=== PATIENT | male | born 1960 | race Caucasian/White ===

== ENCOUNTER 2025-06-17 05:27 | Observation (INO) ==
--- NOTE | 2025-05-23 08:57 | PAT Medication Instructions ---
Medication Instructions Date of Service May 23, 2025 Home Medications atorvastatin 40 mg tablet 40 mg PO QAM hydrochlorothiazide 25 mg tablet 25 mg PO QAM lisinopril 20 mg tablet 20 mg PO QAM metoprolol tartrate 50 mg tablet 50 mg PO BID multivitamin 1 tab PO QAM DO NOT take the morning of surgery hydrochlorothiazide 25 mg tablet 25 mg PO QAM lisinopril 20 mg tablet 20 mg PO QAM multivitamin 1 tab PO QAM Take morning of surgery With a small sip of water, OTHERWISE NOTHING TO EAT OR DRINK AFTER MIDNIGHT: atorvastatin 40 mg tablet 40 mg PO QAM metoprolol tartrate 50 mg tablet 50 mg PO BID Take evening before surgery metoprolol tartrate 50 mg tablet 50 mg PO BID Other Notes If you have any questions please call us at [phone] or [phone] or [phone] or [phone]
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
[2025-06-17] MEDS: CeleBREX 200 MG CAP PO SCH ×2 (05:49→20:24)
[2025-06-17] MEDS: ACETAMINOPHEN 500 MG TAB PO SCH ×2 (05:49→13:30)
[2025-06-17] MEDS: LR 60ML/HR IV SCH (05:49)
[2025-06-17] MEDS: LR 500ML BOLUS, THEN 15ML/HR IV SCH (05:49)
[2025-06-17] MEDS ORDERED: MIDAZOLAM HCL 1 MG/ML 2ML VIAL ONE (06:16)
[2025-06-17] MEDS ORDERED: LIDOCAINE 2% 2 ML VIAL/AMP(20MG/ML) INFIL ONE (06:16)
[2025-06-17] MEDS ORDERED: PROPOFOL IV EMULSION 10 MG/ML 100 ML VIAL IV ONE (06:23)
[2025-06-17] MEDS ORDERED: DEXAMETHASONE SOD INJ 4 MG/ML VIAL ONE ×2 (06:29→07:40)
[2025-06-17] MEDS ORDERED: BUPIVACAINE 0.25% PF 30 ML VIAL ONE (06:30)
[2025-06-17] MEDS ORDERED: BUPIVACAINE 0.5 % 5 MG/1 ML PF 10ML VIAL ONE (06:30)
--- NOTE | 2025-06-17 06:43 | History & Physical Bridge Note ---
Date of Service June 17, 2025 History & Physical Bridge Note I have examined the patient, reviewed the History & Physical and in the interval since the performance of the History & Physical I have noted the following changes of clinical significance: no changes noted
[2025-06-17] MEDS ORDERED: ONDANSETRON INJ 2 MG/ML 2 ML VIAL IV PRN ×2 (06:46→11:06)
[2025-06-17] MEDS ORDERED: PROMETHAZINE HCL 6.25 MG in SODIUM CHLORIDE 0.9% 50 ML IV PRN (06:46)
[2025-06-17] MEDS ORDERED: ATROPINE SULFATE 0.1 MG/ML 10ML SYR IV PRN (06:46)
[2025-06-17] MEDS: TRANEXAMIC ACID 1,000 MG **IV Pre-op IV SCH (06:48)
[2025-06-17] MEDS ORDERED: SUCCINYLCHOLINE CHLORIDE 20 MG/ML 10 ML VIAL IV ONE (07:19)
[2025-06-17] MEDS: ROPIV 0.5% 246mg, Ketorolac 30mg, EPINEPHrine 0.5mg in NSS INFIL SCH (07:45)
[2025-06-17] MEDS: ORTHO JOINT ANESTHETIC ONE (07:46)
[2025-06-17] MEDS ORDERED: GLYCOPYRROLATE 0.2 MG/ML VIAL ONE (07:56)
--- NOTE | 2025-06-17 09:53 | Post Operative Brief Note ---
Immediate Post Op Note Date of Surgery June 17, 2025 Pre & Post Diagnosis Operation Date: 06/17/25 07:00 Pre-Op Diagnosis: Left Knee Osteoarthritis Post-Op Diagnosis: Left Knee Osteoarthritis I identified the patient and participated in the time-out.: Yes Procedure Operation Date: 06/17/25 07:00 Actual Procedures p Left Total Knee Arthroplasty(Left) - Faisal Nino MD Surgeon Faisal Nino MD Sql Ssrs Developer Tello Javier PA-C (No fellow avail) Estimated Blood Loss 50 Findings Consistent with Post-Op Diagnosis Fluids 1450 cc Specimens Left knee contents Anesthesia Type MAC Spinal Regional Complications none
--- NOTE | 2025-06-17 09:54 | Operative Report ---
Post Operative Report Pre & Post Diagnosis Operation Date: 06/17/25 07:00 Pre-Op Diagnosis: Left Knee Osteoarthritis Post-Op Diagnosis: Left Knee Osteoarthritis I identified the patient and participated in the time-out.: Yes Procedure Operation Date: 06/17/25 07:00 Actual Procedures p : Left Total knee replacement, imageless computer assisted navigation (Left) - Faisal Nino MD Surgeon Faisal Nino MD Actuary Manager Tello Javier PA-C (No fellow avail) Estimated Blood Loss 50 Findings See Below Examined Under Anesthesia: ROM -- There was 5 degrees to 130 degrees of flexion Ligamentous examination -- revealed stable Juliana, posterior drawer, varus and valgus stress at 5 and 30 degrees. [place]erbridge Grade IV changes of patellofemoral and medial compartments, grade II-III changes lateral compartment. Fluids 1450 cc Specimens Left knee contents Anesthesia Type MAC Spinal Regional Complications none Indications This is a 65-year-old male who has clinical and radiographic findings consistent with osteoarthritis of the left knee. I recommended that a left total knee replacement be performed. The patient understands the risks of surgery, which include but not limited to: bleeding, infection, re-operation, damage to nerves and arteries, continued knee pain, knee stiffness, DVT, and . The patient understands all these instructions and explanations, all his questions have been satisfactorily addressed, and the patient has elected to proceed. Informed consent was signed. Description of Procedure IMPLANTS: 1. Femur: Triathlon #7 left PS. 2. Tibia: Triathlon #7 [place]. 3. Insert: Triathlon #7 x 9 mm PS X3 poly. 4. Patella: Triathlon A40 x 11 mm X3 poly. 5. Palacos cement. Tello Javier PA-C is assisting with positioning, retracting, and closure due to fellow not available. Procedure: The patient was taken to the Operating Room and placed in the supine position after spinal and adductor canal nerve block was administered. My initials and a multidisciplinary time-out were used to identify the left leg as the correct operative limb. A tourniquet was placed high on the thigh. Prior to the incision, 2 grams of intravenous Ancef were given. One g of TXA was given pre- operatively and another after the tourniquet was released. The left leg was then prepped and draped in a standard sterile fashion. An Esmarch was used to exsanguinate the leg, and the tourniquet was inflated to 250 mmHg. The planned mid-line 20 cm incision was created exposing the extensor mechanism. The medial parapatellar arthrotomy was made and the patella was everted. The patella was addressed first. It was prepared by reaming from 27 mm down to 16 mm. An A40 button was found to fit best. The peg holes were made in the standard fashion. The femur was addressed next and using computer assisted OrthoAlign with 3 degrees of flexion and 0 degrees of valgus, removing 10 mm in the standard fashion for the distal cut. The cut was made and after making the Tibial cut and checking the balancing using OrthoAlign Lantern, Flexion/Extension gap 13 mm laterally & 11 mm medially, after releasing medially. The Lantern was set to 9 which matched exactly the posterior referencing guide. The 4-in-1 cutting block for a size 7 femur was placed. These cuts and the cuts to place the box were made in the standard fashion. The tibia cut with using imageless computer assisted OrthoAlign, taking 2 mm from the medial low side. There was sufficient extension and flexion gap to fit a 9 mm spacer. A #7 Tibial baseplate fit well. A trial with a 9 mm spacer showed excellent stability in both flexion and extension, with good ligament balance, and thumbs free patellar tracking. Range of motion of 0-135 degrees. The tibial baseplate was prepped for the keel and stem. A few drill holes were placed in the sclerotic medial side and a small portion of the excess medial over hang with saw. All components were removed. 90 ml of total knee cocktail were injected into the soft tissues and periosteum. All surfaces were copiously irrigated prior to placement of the components. The Tibial baseplate followed by femoral component were cemented in place and the 9 mm X3 poly was placed. Next, the patellar button was placed using the same cement. Once the cement had cured, the range of motion and stability were unchanged. The tourniquet was deflated. Hemostasis was obtained. Another 1g TXA was given. The extensor mechanism was closed with 1-0 Vicryl and 0 Stratafix with the knee bent approximately 60 degrees in a standard fashion. The peritenon and deep fascia was closed with 2-0 Vicryl. The subcutaneous layer was closed with 3-0 Vicryl. The skin was closed with Zipline and shield. The limb was cleaned and dried. 4x4 dressing was placed over top followed by ABDs, sterile Webril, and a foot to thigh Kelechi bandage. The patient was then transferred to the Recovery Room in stable condition. The sponge and needle counts were correct. POST-OP INSTRUCTIONS: The patient will be WBAT. The patient will be admitted to the hospital. Complete 24-hour course antibiotics. Labs will be obtained during the stay. DVT prophylaxis will include aspirin for 6 weeks, TEDs, and mechanical foot pumps. The dressing will be changed, postop day #2-3, and covered with a Silv erlon dressing. I attest to the content of the Intraoperative Record and any orders documented therein. Any exceptions are noted below.
--- NOTE | 2025-06-17 10:26 | Operative Report ---
Post Operative Report Pre & Post Diagnosis Operation Date: 06/17/25 07:00 Pre-Op Diagnosis: Left Knee Osteoarthritis Post-Op Diagnosis: Left Knee Osteoarthritis I identified the patient and participated in the time-out.: Yes Procedure Operation Date: 06/17/25 07:00 Actual Procedures p Left Total Knee Arthroplasty(Left) - Faisal Nino MD Surgeon Faisal Nino MD Winchman/Crane Operator Tello Javier PA-C (No fellow avail) Estimated Blood Loss 50 Findings Consistent with Post-Op Diagnosis Specimens Routine bone and soft tissue Description of Procedure I was present for the entire case. I assisted with patient positioning, prepping, draping, retraction, suctioning, hardware management, irrigation, wound closure, dressing application. Please refer to Dr. Nino's procedure note for full details. I attest to the content of the Intraoperative Record and any orders documented therein. Any exceptions are noted below.
[2025-06-17] MEDS ORDERED: NALOXONE HCL 0.4 MG/1 ML VIAL/CARP IV PRN (11:06)
[2025-06-17] MEDS ORDERED: TAMSULOSIN HCL 0.4 MG CAP PO PRN (11:06)
[2025-06-17] MEDS ORDERED: HYDROmorphone INJ 0.5 MG/0.5 ML SYR IV PRN (11:06)
[2025-06-17] MEDS ORDERED: METOCLOPRAMIDE HCL INJ 5 MG/ML 2 ML VIAL IV PRN (11:06)
[2025-06-17] MEDS ORDERED: MAGNESIUM HYDROXIDE SUSP 30 ML UDC PO PRN (11:06)
--- NOTE | 2025-06-17 11:35 | XRay Report ---
XR knee LT 1 or 2V routine CLINICAL HISTORY: Surgical Post Op COMPARISON: 05/26/2025 FINDINGS: Left knee prosthesis shows no hardware complication. There is expected soft tissue gas. IMPRESSION: Unremarkable postoperative exam. ACT 112: Negative or not required by law. Electronically signed by: Brent Fuentes M.D. 06/17/2025 11:34 AM
[2025-06-17] MEDS: SODIUM CHLORIDE 0.9% 1,000 ML IV SCH (11:36)
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
--- NOTE | 2025-06-17 16:23 | Anesthesiology Progress Note ---
Date of Service June 17, 2025 Anesthesia Post Procedure Vital Signs Vital Signs: Temp Pulse Pulse Resp BP Pulse Ox O2 Del Method 06/17/25 15:23 36.7 C 71 18 157/81 H 95 Room Air 06/17/25 14:02 36.7 C 71 16 172/74 H 98 Room Air 06/17/25 12:36 36.5 C 71 16 160/84 H 97 Room Air 06/17/25 12:00 36.6 C 63 16 181/91 H 99 Room Air 06/17/25 11:35 36.5 C 61 16 145/81 H 96 Room Air 06/17/25 11:06 36.8 C 54 L 15 155/79 H 100 Room Air 06/17/25 10:50 54 L 18 133/75 98 Room Air 06/17/25 10:40 58 L 15 135/70 94 Room Air 06/17/25 10:30 36.4 C L 49 L 18 129/69 92 Room Air 06/17/25 10:20 52 L 15 128/81 100 Room Air 06/17/25 10:12 36.2 C L 54 L 19 130/84 97 Room Air 06/17/25 05:35 36.4 C L 55 L 18 153/84 H 96 Room Air Transfer of Care Handoff Completed per policy Notes Mental Status: alert / awake / arousable and participated in evaluation Patient Amnestic to Procedure: Yes Nausea / Vomiting: adequately controlled Pain: adequately controlled Airway Patency, RR, SpO2: stable & adequate BP & HR: stable & adequate Hydration State: stable & adequate Neuraxial Anesthesia: was administered and sensory block is resolving Anesthetic Complications: no major complications apparent and Pt Satisfied with anesthetic care
[2025-06-17] MEDS: ASCORBIC ACID 500 MG TAB PO SCH (16:34)
[2025-06-17] MEDS: Scopolamine CHECK PATCH PLACEMENT SCH (16:34)
[2025-06-17] MEDS: FERROUS GLUCONATE 324 MG TAB PO SCH (16:34)
--- NOTE | 2025-06-17 20:18 | Orthopedic Progress Note ---
Date of Service June 17, 2025 Assessment & Plan (1) Knee osteoarthritis: Plan: POD #0 s/p Left TKA, doing as well as expected. Resume diet. WBAT with walker. OOB to chair. Continue pain control. Check labs tomorrow. DVT prophylaxis: TEDs 3 weeks, foot pumps while in hospital, ASA 81 mg BID for 6 weeks. PT/OT. D/C planning. Dressing to be re-enforced as needed, changed POD 2-3 to Silverlon type dressing. Admission and Anticipated Discharge Date Admission Date: June 17, 2025 Subjective Doing well, has been up walking Physical Exam Physical Exam: LLE: : BCR < 2 sec. Sensation to light touch intact distally. Wiggling ankle and toes. Calf soft and non-tender. Dressing is clean, intact, slight bloody drainage anterior. Able to perform straight leg raise. Results & Data Vital Signs (Past 12 Hours) Vital Signs Temp Pulse Pulse Resp BP Pulse Ox O2 Del Method 06/17/25 18:13 36.8 C 83 14 174/74 H 97 Room Air 06/17/25 15:23 36.7 C 71 18 157/81 H 95 Room Air 06/17/25 14:02 36.7 C 71 16 172/74 H 98 Room Air 06/17/25 12:36 36.5 C 71 16 160/84 H 97 Room Air 06/17/25 12:00 36.6 C 63 16 181/91 H 99 Room Air 06/17/25 11:35 36.5 C 61 16 145/81 H 96 Room Air 06/17/25 11:06 36.8 C 54 L 15 155/79 H 100 Room Air 06/17/25 10:50 54 L 18 133/75 98 Room Air 06/17/25 10:40 58 L 15 135/70 94 Room Air 06/17/25 10:30 36.4 C L 49 L 18 129/69 92 Room Air 06/17/25 10:20 52 L 15 128/81 100 Room Air 06/17/25 10:12 36.2 C L 54 L 19 130/84 97 Room Air Diagnostic Findings XR knee LT 1 or 2V routine CLINICAL HISTORY: Surgical Post Op COMPARISON: 05/26/2025 FINDINGS: Left knee prosthesis shows no hardware complication. There is expected soft tissue gas. IMPRESSION: Unremarkable postoperative exam.
[2025-06-17] MEDS: METOPROLOL TARTRATE 50 MG TAB PO SCH (20:24)
[2025-06-17] MEDS: SENNA 8.6 MG TAB PO SCH (20:24)
[2025-06-17] MEDS: DOCUSATE SODIUM 100 MG CAP PO SCH (20:24)
[2025-06-17] MEDS: diphenhydrAMINE Capsule 25 MG CAP PO PRN (22:41)
[2025-06-18 07:52] LABS: Hematocrit (blood only) 33.5 % (42.0-52.0); Hemoglobin 11.9 g/dl (14.0-18.0); Mean Corpuscular Hemoglobin 30.7 pg (25.0-34.0); Mean Corpuscular Volume 86.6 fL (80.0-100.0); Platelet Count 213 K/uL (130-400); RDW Standard Deviation 39.5 fL (36.4-46.3); Red Blood Count 3.87 M/uL (4.70-6.10); White Blood Count 13.89 K/ul (4.8-10.8)
[2025-06-18 07:56] VITALS: BP 155/69; PULSE 75; RESP 18; TEMP 98.4; O2SAT 98
[2025-06-18] MEDS ORDERED: dexAMETHasone 10 MG in SYRINGE 0 ML IV SCH (08:00)
[2025-06-18] MEDS: hydroCHLOROthiazide 25 MG TAB PO SCH (08:09)
[2025-06-18] MEDS: MULTIVITAMIN TAB PO SCH (08:09)
[2025-06-18] MEDS: ASPIRIN 81 MG ECTAB PO SCH (08:09)
[2025-06-18] MEDS: ATORVASTATIN 40 MG TAB PO SCH (08:09)
[2025-06-18 08:10] LABS: Anion Gap 6.0 (3-11); Blood Urea Nitrogen 22.0 mg/dl (6-23); Calcium 9.3 mg/dl (8.6-10.3); Carbon Dioxide 27.0 mmol/L (21-32); Chloride 105.0 mmol/L (98-107); Creatinine Clr Calc Pharmacy 109.2 ml/min; Glucose 115.0 mg/dl (70-99(Fasting)); Potassium 4.2 mmol/L (3.5-5.1); Sodium 138.0 mmol/L (136-145)
[2025-06-18] MEDS ORDERED: hydroCHLOROthiazide 25 MG TAB PO SCH (09:00)
--- NOTE | 2025-06-18 09:01 | Orthopedic Progress Note ---
Date of Service June 18, 2025 Assessment & Plan (1) Knee osteoarthritis: Plan: POD #1 s/p Left TKA, doing as well as expected. Resume diet. Tolerating well. WBAT with walker. OOB to chair. Continue pain control. H/H stable - started Iron supplement and Vitamin C. DVT prophylaxis: TEDs 3 weeks, foot pumps while in hospital, ASA 81 mg BID for 6 weeks. PT/OT. Did well with both today. D/C planning with Case management. Home health is arranged. Dressing to be re-enforced as needed, changed POD 2-3 to Silverlon type dressing. Appointment scheduled on Monday06/20/25 for a dressing change. Dressing left in place today. All questions answered, D/C instructions provided. Plan for discharge this morning to home with HH. Admission and Anticipated Discharge Date Admission Date: June 17, 2025 Subjective Patient sitting up in chair. Has participated in occupational and physical therapy this morning. Overall doing well. Denies any pain in his left knee. As per nursing, dressing was reinforced last evening. He had some scant bloody drainage through dressing. He denies any postoperative nausea, vomiting, li ghtheadedness or dizziness. He does feel able to go home today. Physical Exam Musculoskeletal: Exam focused on his left lower extremity: He has full ankle and toe range of motion with normal strength. Distal pulses are 1+. No distal edema present. Calf is supple and nontender with palpation. Scant dried bloody drainage on the dressings visible today around the lateral aspect of the knee. He is able to independently straight leg raise. Nontender with palpation or range of motion of the left hip. Results & Data Vital Signs (Past 12 Hours) Vital Signs Temp Pulse Resp BP Pulse Ox O2 Del Method 06/18/25 07:00 36.9 C 75 18 155/69 H 98 Room Air 06/18/25 02:26 36.7 C 69 14 111/64 95 Room Air 06/17/25 22:21 36.5 C 77 16 133/75 94 Room Air Laboratory Results 06/18/25 Range/Units 07:23 WBC 13.89 H (4.8-10.8) K/ul RBC 3.87 L (4.70-6.10) M/uL Hgb 11.9 L (14.0-18.0) g/dl Hct 33.5 L (42.0-52.0) % MCV 86.6 (80.0-100.0) fL MCH 30.7 (25.0-34.0) pg MCHC 35.5 (32.0-36.0) g/dL RDW Std Deviation 39.5 (36.4-46.3) fL RDW Coeff of Alonzo 12.6 (11.5-14.5) % Plt Count 213 (130-400) K/uL MPV 10.0 (9.4-12.4) fL Sodium 138 (136-145) mmol/L Potassium 4.2 (3.5-5.1) mmol/L Chloride 105 (98-107) mmol/L Carbon Dioxide 27 (21-32) mmol/L Anion Gap 6 (3-11) BUN 22 (6-23) mg/dl Creatinine 0.91 (0.6-1.4) mg/dl Est Cr Clr Drug Dosing 109.2 ml/min eGFR 93.53 BUN/Creatinine Ratio 24.2 H (10-20) Glucose 115 H (70-99(Fasting)) mg/dl Calcium 9.3 (8.6-10.3) mg/dl Diagnostic Findings XR knee LT 1 or 2V routine CLINICAL HISTORY: Surgical Post Op COMPARISON: 05/26/2025 FINDINGS: Left knee prosthesis shows no hardware complication. There is expected soft tissue gas. IMPRESSION: Unremarkable postoperative exam.
--- NOTE | 2025-06-18 09:06 | Discharge Summary ---
Date of Service June 18, 2025 Discharge Data Consultations 06/12/25 13:38 Consult Hospitalist Routine Procedures Performed Operation Date: 06/17/25 07:00 Actual Procedures p Left Total Knee Arthroplasty(Left) - Faisal Nino MD Hospital Course (1) Knee osteoarthritis: Mr. Oconnell status post left total knee arthroplasty on July 18, [address] Faisal Nino. His surgery was performed with spinal anesthesia and a peripheral nerve block. He was given IV Ancef for surgical prophylaxis which was continued for 24 hours after surgery. He was given 1 g of IV TXA preoperatively and then another 1 g of IV TXA intraoperatively for bleeding prophylaxis. He tolerated the procedure well without any intraoperative complications. In the recovery room x-rays of his left knee were obtained and showed a stable left knee prosthesis without any evidence of hardware failure or fracture. He was allowed out of bed, weight-bear as tolerated with the assistance of a walker. Pain medication was prescribed and consisted of IV Dilaudid, oxycodone, Tylenol and Celebrex. His pain was well-controlled during his inpatient stay. He was provided a regular diet and did not have any postoperative nausea, vomiting after surgery. A bowel regimen was provided during his inpatient stay. His home medications were continued. Postoperative lab work was stable on postoperative day 1. Vital signs remained stable. He was started on aspirin 81 mg twice daily for 6 weeks after surgery for DVT prophylaxis. He had AV impulse boots while in the hospital and also JANETT stockings, knee-high for 3 weeks after surgery. Physical therapy and Occupational Therapy consults were placed and he was evaluated by them on postoperative day 1 and was deemed safe for discharge to home. He was seen and evaluated by case management for disposition needs. Home health had been arranged and was confirmed. On postoperative day 1, June 18, 2025 he was deemed safe for discharge and was discharged to his home in stable condition. He will follow-up in our office as scheduled for postoperative dressing change.
[2025-06-20] MEDS ORDERED: Scopolamine REMOVE TRANSDERM PATCH ONE (08:00)
== END 2025-06-18 11:24 | disposition home health service (06) ==
LOC: 3E 05:27 → ASU 05:27